=== PATIENT | female | born 2000 | race Caucasian/White ===

== ENCOUNTER 2020-04-14 10:57 | Outpatient (CLI) | payer OTHER ==
[2020-04-15 13:42] LABS: SARS-CoV-2 MS2 Positive; SARS-CoV-2 N Gene Negative; SARS-CoV-2 S Gene Negative; SARS-CoV-2 by NAA Not Detected (NotDetected); SARS-CoV-2 orf1ab Negative
== END 2020-04-14 10:58 | disposition home or self-care (01) ==
LOC: LABBT 10:57
PROVIDERS: ATTEND Obstetrics & Gynecology
DX: Z20.828 Contact with and (suspected) exposure to other viral communicable diseases (principal)
CPT/HCPCS: 87635; U0003

== ENCOUNTER 2020-04-18 16:38 | Inpatient (IN) | payer OTHER ==
[~2020-04-18 16:38] MED LIST: Bupivacaine/Epinephrine 0.25% 30 ML VIAL ONE
[2020-04-18] MEDS ORDERED: Methylergonovine 0.2 MG/ML VIAL IM PRN (19:35)
[2020-04-18] MEDS ORDERED: hydrALAZINE 20 MG/ML VIAL SLOW IVP PRN (19:35)
[2020-04-18] MEDS ORDERED: Misoprostol 200 MCG TAB PR PRN (19:35)
[2020-04-18] MEDS ORDERED: Zolpidem Tartrate 5 MG TAB PO PRN (19:35)
[2020-04-18] MEDS ORDERED: Acetaminophen 500 MG TAB PO PRN (19:35)
[2020-04-18] MEDS ORDERED: Diphenoxylate HCl/Atropine Tablet PO PRN ×2 (19:35)
[2020-04-18] MEDS ORDERED: Ondansetron PF 4 MG/2 ML Vial IVP PRN (19:35)
[2020-04-18] MEDS ORDERED: NS / Oxytocin 40 units/1000ml 1,000 ML IV PRN (19:35)
[2020-04-18] MEDS ORDERED: Ibuprofen 800 MG TAB PO PRN (19:35)
[2020-04-18] MEDS ORDERED: Carboprost 250 MCG/ML AMP IM PRN (19:35)
[2020-04-18] MEDS ORDERED: Butorphanol Tartrate 1 MG/ML VIAL SLOW IVP PRN (19:35)
[2020-04-18] MEDS ORDERED: Lidocaine 1% (PF) 30 ML VIAL SC PRN (19:35)
[2020-04-18] MEDS ORDERED: Promethazine HCl 25 MG/ML VIAL IM PRN (19:35)
[2020-04-18] MEDS ORDERED: HYDROcodone/Acetaminophen 5/325 mg Tablet PO PRN ×2 (19:35)
--- NOTE | 2020-04-18 19:39 | PDOC.LDHP ---
Labor and Delivery H&P HPI: 20 y/o at 39 and 1/7 weeks presents for elective term induction of labor. Current gestational age (weeks): 39 Due date: 04/24/20 Grav: 1 Para: 0 Current complications: none Abnormal US findings: No Current medications: pre- vitamins Social history: none - Physical Exam Vital signs reviewed and normal: yes General: NAD, resting Heart: RRR Lungs: CTAB Abdomen: gravid Extremeties: no edema FHT: category 1 - Assessment L&D Assessment: elective induction at term - Plan Plan: admit to L&D, cervical ripening
[2020-04-18] MEDS ORDERED: Penicillin G Potassium 5 MILL.UNITS in Sodium Chloride 0.9% 100 ML IVPB SCH (19:45)
[2020-04-18] MEDS ORDERED: NS w/ Oxytocin 10 units 500 ML IV SCH ×2 (19:45)
[2020-04-18 19:55] VITALS: BMI 31.7
[2020-04-18] MEDS: Misoprostol 100 MCG TAB VAG SCH (20:30)
[2020-04-18] MEDS: Lactated Ringer's 1,000 ML IV SCH (20:32)
[2020-04-18 20:48] LABS: Hemoglobin 11.3 g/dL (12.0-16.0); Mean Corpuscular HGB CONC 33.2 g/dL (32.0-36.0); Mean Corpuscular Volume 84.3 fL (78.0-98.0); Mean Platelet Volume 8.2 fL (7.4-10.4); Platelet Count 234 thou/uL (130-400); RBC Distribution Width 12.8 % (11.5-14.5); Red Blood Cell (RBC) Count 4.03 mill/uL (4.20-5.40); White Blood Cell (WBC) Count 13.4 thou/uL (4.8-10.8)
[2020-04-18 21:26] LABS: Syphilis Antibody Nonreactive (Nonreactive); Syphilis Antibody Index 0.68 S/CO (<1.00 Non-Reactive)
[2020-04-18 22:40] LABS: HBSAg Index 0.13 S/CO (0-0.99); Hep B Surf Ag Non-Reactive S/CO (NonReactive)
[2020-04-19] MEDS ORDERED: Fentanyl 4 mcg/Bup 0.1% Cadd 0 ML ONE (00:03)
[2020-04-19] MEDS: Penicillin G 2.5 MILL.units 2.5 MILL.UNITS in Premix Bag 1 BAG IVPB SCH ×4 (02:17→14:36)
[2020-04-19] MEDS: Misoprostol 100 MCG TAB VAG SCH (03:33)
[2020-04-19] MEDS ORDERED: Fentanyl 4 mcg/Bup 0.1% Cadd 100 ML ONE (06:39)
[2020-04-19] MEDS: Lactated Ringer's 1,000 ML IV SCH ×2 (07:36→11:11)
[2020-04-19] MEDS ORDERED: ePHEDrine 50 MG/ML VIAL SLOW IVP PRN (09:53)
[2020-04-19] MEDS ORDERED: Acetaminophen 325 MG TAB PO PRN (09:53)
[2020-04-19] MEDS ORDERED: diphenhydrAMINE 50 MG/ML VIAL IVP PRN (09:53)
[2020-04-19] MEDS ORDERED: Promethazine HCl 25 MG/ML VIAL IM PRN ×2 (09:53→20:53)
[2020-04-19] MEDS ORDERED: Lactated Ringer's 500 ML IV PRN (09:53)
[2020-04-19] MEDS ORDERED: Naloxone HCl 0.4 mg/ml Vial IVP PRN ×2 (09:53)
[2020-04-19] MEDS ORDERED: Ondansetron PF 4 MG/2 ML Vial IVP PRN ×2 (09:53→20:53)
[2020-04-19] MEDS ORDERED: Communication Order-Pharmacy FS PRN (10:00)
[2020-04-19] MEDS ORDERED: Fentanyl 4 mcg/Bupivacaine 0.1% Cassette 100 ML EPIDURAL SCH (10:00)
[2020-04-19] MEDS ORDERED: NS / Oxytocin 40 units/1000ml 1,000 ML ONE (13:44)
[2020-04-19] MEDS ORDERED: Lidocaine 1% (PF) 30 ML VIAL ONE (13:44)
[2020-04-19] MEDS ORDERED: CEFAZOLIN 2 GM in Premix Bag 1 BAG IVPB SCH (18:45)
[2020-04-19] MEDS ORDERED: diphenhydrAMINE 25 MG CAP PO PRN (20:53)
[2020-04-19] MEDS ORDERED: NS / Oxytocin 40 units/1000ml 1,000 ML IV SCH (20:53)
[2020-04-19] MEDS ORDERED: Preparation H Ointment 28 GM TUBE PR PRN (20:53)
[2020-04-19] MEDS ORDERED: Lanolin Ointment 7 GM TUBE TOP PRN (20:53)
[2020-04-19] MEDS ORDERED: Milk Of Magnesia 30 ML UDCUP PO PRN (20:53)
[2020-04-19] MEDS ORDERED: Benzocaine-Menthol 82.5 ML CAN TOP PRN (20:53)
[2020-04-19] MEDS ORDERED: Methylergonovine 0.2 MG/ML VIAL IM PRN (20:53)
[2020-04-19] MEDS ORDERED: Zolpidem Tartrate 5 MG TAB PO PRN (20:53)
[2020-04-19] MEDS ORDERED: Misoprostol 200 MCG TAB VAG PRN (20:53)
[2020-04-19] MEDS ORDERED: Bisacodyl 10 MG SUPP PR PRN (20:53)
[2020-04-19] MEDS ORDERED: HYDROcodone/Acetaminophen 5/325 mg Tablet PO PRN ×2 (20:53)
[2020-04-19] MEDS ORDERED: hydrALAZINE 20 MG/ML VIAL SLOW IVP PRN (20:53)
[2020-04-19] MEDS: Docusate Calcium (SURFAK) 240 MG CAP PO SCH (21:11)
[2020-04-19] MEDS: Ibuprofen 800 MG TAB PO SCH (21:11)
[2020-04-20] MEDS: Lactated Ringer's 1,000 ML IV SCH (00:57)
[2020-04-20] MEDS: Misoprostol 100 MCG TAB VAG SCH ×2 (00:58→00:59)
[2020-04-20] MEDS: Penicillin G 2.5 MILL.units 2.5 MILL.UNITS in Premix Bag 1 BAG IVPB SCH (00:58)
[2020-04-20] MEDS: Ibuprofen 800 MG TAB PO SCH ×3 (04:41→20:46)
[2020-04-20 07:25] LABS: Hemoglobin 9.8 g/dL (12.0-16.0); Mean Corpuscular HGB CONC 32.1 g/dL (32.0-36.0); Mean Corpuscular Hemoglobin 27.8 pg (27.0-31.0); Mean Corpuscular Volume 86.4 fL (78.0-98.0); Mean Platelet Volume 8.3 fL (7.4-10.4); Platelet Count 202 thou/uL (130-400); RBC Distribution Width 13.1 % (11.5-14.5); Red Blood Cell (RBC) Count 3.52 mill/uL (4.20-5.40); White Blood Cell (WBC) Count 16.3 thou/uL (4.8-10.8)
[2020-04-20] MEDS ORDERED: Varicella virus, LIVE 0.5 ML VIAL SC ONE (09:00)
[2020-04-20] MEDS ORDERED: Adacel (T-DAP) 0.5 ML SYRINGE IM ONE (09:00)
[2020-04-20] MEDS ORDERED: Measles/Mumps/Rubella 10 MCG/0.5 ML VIAL SC ONE (09:00)
[2020-04-20] MEDS: Docusate Calcium (SURFAK) 240 MG CAP PO SCH ×2 (09:31→20:47)
[2020-04-20] MEDS: Ferrous Sulfate 325 MG TAB PO SCH ×2 (09:31→18:08)
[2020-04-20] MEDS: Prenatal Vitamin 1 TAB PO SCH (09:31)
[2020-04-21] MEDS: Ibuprofen 800 MG TAB PO SCH (04:36)
[2020-04-21 08:20] VITALS: BP 98/57; TEMP 97.8
[2020-04-21] MEDS: Docusate Calcium (SURFAK) 240 MG CAP PO SCH (09:30)
[2020-04-21] MEDS: Ferrous Sulfate 325 MG TAB PO SCH (09:30)
[2020-04-21] MEDS: Prenatal Vitamin 1 TAB PO SCH (09:30)
--- NOTE | 2020-04-24 13:46 | DIS ---
DATE OF ADMISSION: 04/18/2020 DATE OF DISCHARGE: 04/21/2020 ADMISSION DIAGNOSIS: Intrauterine at 39 weeks and two days with an elective term induction of labor. COMPLICATIONS DURING ADMISSION: None. CONSULTATIONS: None. ADDITIONAL PROCEDURES: None. HOSPITAL COURSE: Ms. Narayan was admitted on 04/18/2020 and delivered on 04/19/[address] vaginal delivery over a third-degree laceration of the perineum. This repair was easily repaired in usual fashion, and the patient experienced no further difficulty throughout her stay, in fact she had normal bowel movements and did not complain of any additional pain or problems. We did use ample stool softeners and encouraged her to do so at home for an additional six weeks. The patient was discharged in stable condition with an ibuprofen 800 mg prescription. Clinic followup was recommended in two weeks or sooner if she began having problems. Job ID: [id number]
--- NOTE | 2020-04-24 13:46 | DN ---
DATE OF PROCEDURE: 04/19/2020 TIME: 1806 hours Central Standard time. PREOPERATIVE DIAGNOSIS: Intrauterine at 39 weeks and 2 days with a term induction of labor. POSTOPERATIVE DIAGNOSIS: Intrauterine at 39 weeks and 2 days with a term induction of labor. PROCEDURE PERFORMED: Spontaneous vaginal delivery over a third-degree laceration of the perineum, more specifically a 3A laceration of the perineum. FINDINGS: Viable male weighing 3594 g or 7 pounds 15 ounces. Apgars 8 and 9. QUANTITATIVE BLOOD LOSS: 300 mL. COMPLICATIONS: None. DESCRIPTION OF PROCEDURE: The patient presented to [facility] where she was admitted to the labor and delivery service. The patient underwent a normal and uneventful labor with normal cervical dilatation until she was found to be completely dilated. She was then allowed to push and was able to bring the baby down and delivered the baby in a vertex presentation without difficulties. Once the head delivered in occiput anterior position, the shoulders followed spontaneously along with the rest of the baby's body. Once out the baby's mouth and nose were bulb suctioned. The cord was clamped and cut and baby was handed to waiting attendants. Cord blood was collected. Gentle fundal massage was performed and the placenta delivered intact without problems. Hemostasis was assured. Quantitative blood loss was calculated. Inspection of the cervix, vaginal vault, and perineum did not reveal any lacerations needing suturing. Once again, hemostasis was within normal limits and the patient was allowed to recover in the labor and delivery room. Baby went to nursery. ADDENDUM: A third-degree laceration was noted, specifically a type 3A. The outer portion of the external anal sphincter was reinforced using a combination of 2-0 and 3-0 chromic sutures. Rest of the episiotomy was repaired in the usual fashion using 3-0 chromic suture. At the completion of the repair, gel was put on the gloves and the anal cavity was checked for any stitches or occult injuries and none were found. Job ID: [id number]
== END 2020-04-21 12:31 | disposition home or self-care (01) | DRG 768 ==
LOC: L&D 19:14 → 3SW 04-19 22:39
PROVIDERS: ADMIT Obstetrics & Gynecology; ATTEND Obstetrics & Gynecology
PROC: 10E0XZZ Delivery of Products of Conception, External Approach (ICD-10-PCS; principal; 2020-04-19)
PROC: 0DQR0ZZ Repair Anal Sphincter, Open Approach (ICD-10-PCS; 2020-04-19)
PROC: 3E033VJ Introduction of Other Hormone into Peripheral Vein, Percutaneous Approach (ICD-10-PCS; 2020-04-19)
DX: O70.20 Third degree perineal laceration during delivery, unspecified (principal); Z37.0 Single live birth; Z3A.39 39 weeks gestation of pregnancy
CPT/HCPCS: 36415; 51702; 85027; 86780; 86850; 86900; 86901; 87340; J2540; J2590; J3490